=== PATIENT | female | born 1975 | race Caucasian/White ===

== ENCOUNTER 2017-04-11 09:30 | Emergency (ER) | payer BC ==
[2017-04-11] MEDS ORDERED: Lidocaine 1%* 5 ML VIAL ONE ×2 (09:54→10:04)
--- NOTE | 2017-04-11 10:46 | ED ---
Laceration/Wound HPI - HPI Summary HPI Summary: Patient presents with laceration to the right knee which measures 4cm, irregular , contaminated and moderate depth of approx .5cm. Laceration occurred during a mechanical fall last evening approximately 12 hours ago. She states she did not want to come last night, but the knee continued to bleed last evening. Bleeding has stopped now. She denies other injuries. She denies pain, itching or burning. There is a small amount of subcutaneous fat protruding from the wound. She denies medications, blood thinners or allergies. - History of Current Complaint Stated Complaint: RIGHT FOOT INJURY, LACERATION Time Seen by Provider: 04/11/17 09:37 Hx Obtained From: Patient Mechanism of Injury: Sharp/Blunt Trauma Onset/Duration: Sudden Onset Aggravating: Movement Alleviating: Compression Timing: Constant Onset Severity: Mild Current Severity: Mild Pain Intensity: 1 Pain Scale Used: 0-10 Numeric Associated Signs & Symptoms: Negative Related Hx: Recent Trauma - Allergy/Home Medications Allergies/Adverse Reactions: Allergies Allergy/AdvReac Type Severity Reaction Status Date / Time No Known Allergies Allergy Verified 04/11/17 09:50 PMH/Surg Hx/FS Hx/Imm Hx Previously Healthy: Yes - Immunization History Hx Pertussis Vaccination: No Immunizations Up to Date: Unable to Obtain/Confirm Infectious Disease History: No Infectious Disease History: Denies: Traveled Outside the [place] in Last 30 Days - Social History Occupation: Employed Full-time Lives: With Family Alcohol Use: Weekly Hx Substance Use: No Substance Use Type: Reports: None Hx Tobacco Use: Yes Smoking Status (MU): Light Every Day Tobacco Smoker Review of Systems Constitutional: Negative Eyes: Negative Respiratory: Negative Gastrointestinal: Negative Positive: no symptoms reported, see HPI Musculoskeletal: Negative Positive: Other - laceration to the knee Neurological: Negative Psychological: Normal All Other Systems Reviewed And Are Negative: Yes Physical Exam Triage Information Reviewed: Yes Vital Signs On Initial Exam: Initial Vitals Temp Pulse Resp BP Pulse Ox 97.7 F 96 20 130/95 98 04/11/17 09:33 04/11/17 09:33 04/11/17 09:33 04/11/17 09:33 04/11/17 09:33 Vital Signs Reviewed: Yes Appearance: Positive: Well-Appearing, Well-Nourished Skin: Positive: Warm, Skin Color Reflects Adequate Perfusion, Other - laceration to the right knee Head/Face: Positive: Normal Head/Face Inspection Eyes: Positive: EOMI, JENNA, Conjunctiva Clear Neck: Positive: Supple, No Lymphadenopathy Respiratory/Lung Sounds: Positive: Clear to Auscultation, Breath Sounds Present Cardiovascular: Positive: Normal, RRR, Pulses are Symmetrical in both Upper and Lower Extremities Musculoskeletal: Positive: Normal, Strength/ROM Intact Neurological: Positive: Alert, Oriented to Person Place, Time, Speech Normal Psychiatric: Positive: Normal AVPU Assessment: Alert Procedures - Laceration/Wound Repair 1 Location: lower extremity Description: Irregular Anesthesia: Local, 1.0% Length, Depth and Shape: 4cm length, irregular, .5cm depth Betadine Prep?: No Irrigated w/ Saline (ccs): 60 - scrubbed the wound Laceration/Wound Explored: contaminated, foreign body removed Debridement: minimal Suture Type: Prolene Number of Sutures: 6 Layer Closure?: No Sterile Dressing Applied?: No Diagnostics - Vital Signs Vital Signs Temp Pulse Resp BP Pulse Ox 04/11/17 09:47 97.7 F 96 16 130/95 98 04/11/17 09:33 97.7 F 96 20 130/95 98 - Laboratory Lab Statement: Any lab studies that have been ordered have been reviewed, and results considered in the medical decision making process. Laceration Repair Course/Dx - Course Course Of Treatment: Timeout obtained. Cleansed wound and scrubbed wound. Irrigated with 60CC's normal saline. Lidocaine without epi as local anesthetic - 4ml. 3-0 non-absorbable prolene. 6 sutures placed using simple interrupted technique. Patient tolerated well. Cleaned and dressed wound with telfa dressing. NV exam WNL. Sutures out in 5 days. Return precautions given. Patient OK with discharge. - Differential Dx Differental Diagnoses: Abscess, Avulsion, Laceration - Clinical Impression Provider Diagnoses: Laceration Discharge - Discharge Plan Condition: Stable Disposition: HOME Prescriptions: Cephalexin CAP* [Keflex CAP*] 500 mg PO QID #28 cap MDD 4 Patient Education Materials: Care For Your Stitches (ED), Laceration (ED) Additional Instructions: If you develop redness, streaks of red around the wound, swelling, abnormal drainage or you develop a fever - you need to come back to the ED right away. Suture removal in 7 days. Continue to keep covered x 24 hours, then leave open to air. If you are in a contaminated area, keep the wound covered.
[2017-04-11 11:42] VITALS: BP 134/104
== END 2017-04-11 11:43 | disposition home or self-care (01) ==
LOC: ED 09:30
DX: S81.011A Laceration without foreign body, right knee, initial encounter (principal); W19.XXXA Unspecified fall, initial encounter; Y93.9 Activity, unspecified; Y92.9 Unspecified place or not applicable
CPT/HCPCS: 12002; 99282